=== PATIENT | female | born 1980 | race Caucasian/White ===

== ENCOUNTER 2019-03-20 12:29 | Outpatient (CLI) | payer OTHER | END 2019-03-20 14:57 | disposition home or self-care (01) | LOC: RAD 12:29 | DX: J30.1 Allergic rhinitis due to pollen (principal); J45.31 Mild persistent asthma with (acute) exacerbation; J11.1 Influenza due to unidentified influenza virus with other respiratory manifestations; J15.7 Pneumonia due to Mycoplasma pneumoniae ==

== ENCOUNTER 2020-08-28 12:11 | Outpatient (CLI) | payer OTHER | END 2020-08-28 12:19 | disposition home or self-care (01) | LOC: RAD 12:11 | PROVIDERS: ATTEND Internal Medicine | DX: M19.09 Primary osteoarthritis, other specified site (principal) ==

== ENCOUNTER 2022-02-18 09:15 | Outpatient (CLI) | payer OTHER | END 2022-02-18 09:17 | disposition home or self-care (01) | LOC: RAD 09:15 | PROVIDERS: ATTEND Internal Medicine Cardiovascular Disease | DX: I10 Essential (primary) hypertension (principal); M25.562 Pain in left knee ==

== ENCOUNTER 2023-04-06 11:44 | Outpatient (CLI) | payer OTHER | END 2023-04-06 11:52 | disposition home or self-care (01) | LOC: SONOGRAMA 11:44 | DX: E03.9 Hypothyroidism, unspecified (principal) ==

== ENCOUNTER 2024-07-18 09:36 | Outpatient (CLI) | payer OTHER | END 2024-07-18 09:43 | disposition home or self-care (01) | LOC: RAD 09:36 | PROVIDERS: ATTEND Physical Medicine & Rehabilitation Pain Medicine | DX: M53.3 Sacrococcygeal disorders, not elsewhere classified (principal) ==

== ENCOUNTER 2024-09-12 08:10 | Outpatient (CLI) | payer OTHER | END 2024-09-12 08:18 | disposition home or self-care (01) | LOC: SONOGRAMA 08:10 | DX: J30.9 Allergic rhinitis, unspecified (principal); J45.30 Mild persistent asthma, uncomplicated; R05.3 Chronic cough ==